=== PATIENT | female | born 1970 | race Caucasian/White ===

== ENCOUNTER → 2019-06-26 | Outpatient (CLI) | payer OTHER, BC ==
[~2019-06-26] MED LIST: Aspir 8181 MG PO; Benicar5 MG PO; DOXY100T53 PO; LORA10 PO; LOVA40 PO; METF500C PO; METR70GEL VAG
[2019-06-27 15:07] LABS: HPV 16 Negative (Negative); HPV 18 Negative (Negative); HPV OTHER HR TYPES Negative (Negative)
== END | disposition home or self-care (01) ==
LOC: LAB 12:49 → LAB SHORT 12:49
PROVIDERS: Obstetrics & Gynecology
DX: Z01.419 Encounter for gynecological examination (general) (routine) without abnormal findings (principal)
CPT/HCPCS: 87624; G0123

== ENCOUNTER → 2019-08-31 | Outpatient (CLI) | payer OTHER, BC | END | disposition home or self-care (01) | LOC: LAB 13:56 → LAB SHORT 13:56 | DX: N95.0 Postmenopausal bleeding (principal) | CPT/HCPCS: 88305 ==

== ENCOUNTER 2020-11-17 06:22 | Day surgery (SDC) | payer BC ==
[~2020-11-17] VITALS: Ht 157.5 cm; Wt 57.8 kg
[~2020-11-17 06:22] MED LIST changes: +ATOR20 PO; +Aspir 8181 MG; +FISH OIL 1,2001 EAC7 PO; +GLIM4 PO; +LOVA40; +Loratadine10 MG PO; +METF500 PO; +OLME5TAB PO; +OMEP20ER PO
[2020-11-17] MEDS ORDERED: ACET500 PO (14:42)
[2020-11-17] MEDS ORDERED: OXYC5 PO (14:42)
[2020-11-17] MEDS ORDERED: IBUP800 PO (14:42)
[2020-11-17] MEDS ORDERED: DOCU100 PO (14:42)
--- NOTE | 2020-11-17 16:16 | NUR ---
POST OP: REPORT RECEIVED FROM [facility]. PT TO UNIT AT ABOUT 1050. A/O VSS, DENIES PAIN/NAUSEA. SURGICAL SITES WNL. GIBSON DC'D AT ABOUT 1200, PT ABLE TO VOID WITH PVR OF 60ML. PT TOLERATED REG FOOD FOR LUNCH, REPORTS PAIN MANAGED WITH TYLENOL AND MOTRIN. SCANT VAGINAL BLEED. WILL CTM
--- NOTE | 2020-11-17 16:19 | NUR ---
DISCHARGE: PACKET PRINTED AND PT EDUCATED. GIVEN SCRIPTS. LEFT UNIT AT 1600 VIA WHEELCHAIR WITH THIS RN.
== END 2020-11-17 16:03 | disposition home or self-care (01) ==
LOC: ORSCMMR 06:22 → SURS 10:42
PROVIDERS: Obstetrics & Gynecology
PROC: 0UT5FZZ Resection of Right Fallopian Tube, Via Natural or Artificial Opening With Percutaneous Endoscopic Assistance (ICD-10-PCS; principal; 2020-11-17 07:30)
PROC: 0UT9FZZ Resection of Uterus, Via Natural or Artificial Opening With Percutaneous Endoscopic Assistance (ICD-10-PCS; principal; 2020-11-17 07:30)
PROC: 0UT0FZZ Resection of Right Ovary, Via Natural or Artificial Opening With Percutaneous Endoscopic Assistance (ICD-10-PCS; principal; 2020-11-17 07:30)
DX: N95.0 Postmenopausal bleeding (principal); N83.291 Other ovarian cyst, right side; D25.9 Leiomyoma of uterus, unspecified; Z80.49 Family history of malignant neoplasm of other genital organs; N80.0 Endometriosis of uterus; K66.0 Peritoneal adhesions (postprocedural) (postinfection); I10 Essential (primary) hypertension; E11.9 Type 2 diabetes mellitus without complications; E78.5 Hyperlipidemia, unspecified; K21.9 Gastro-esophageal reflux disease without esophagitis; Z79.899 Other long term (current) drug therapy; Z79.84 Long term (current) use of oral hypoglycemic drugs; Z79.82 Long term (current) use of aspirin
CPT/HCPCS: 82947; 88307; A9270; J0171; J0690; J1885; J2250; J2370; J2405; J2704; J2710; J2765; J3010; J7120

== ENCOUNTER → 2023-08-26 | Outpatient (CLI) | payer BC ==
[~2023-08-26] MED LIST changes: +ACET500 PO; +DOCU100 PO; +IBUP800 PO; +OXYC5 PO
[2023-08-26 13:18] LABS: Microalbumin, Random Urine 24.4 mg/L (0.000-20.000)
== END | disposition home or self-care (01) ==
LOC: LAB SHORT 11:22 → LAB 11:22
PROVIDERS: Family Medicine
DX: E11.59 Type 2 diabetes mellitus with other circulatory complications (principal); E11.22 Type 2 diabetes mellitus with diabetic chronic kidney disease; N18.9 Chronic kidney disease, unspecified
CPT/HCPCS: 82043; 82570